=== PATIENT | male | born 1960 | race American Indian/Alaskan Native ===

== ENCOUNTER 2016-08-22 06:05 | Day surgery (SDC) | payer MEDICARE, MEDICAID ==
[2016-08-22] MEDS ORDERED: ECOTRIN PO ONE (06:24)
[2016-08-22 06:55] LABS: Basophils % (Auto) 1.4 % (0.0-1.8); Hematocrit 36.9 % (35.5-45.6); Hemoglobin 11.7 gm/dl (11.8-15.2); Mean Corpuscular HGB Conc 32 % (32-34); Mean Corpuscular Hemoglobin 28 pg (28-32); Mean Corpuscular Volume 88 fl (84-94); Platelet Count 177 K/mm3 (140-440); Red Blood Count 4.19 M/mm3 (3.65-5.03); White Blood Count 4.9 K/mm3 (4.5-11.0)
[2016-08-22 07:00] LABS: Red Cell Distribution Width 21.3 % (13.2-15.2)
[2016-08-22] MEDS ORDERED: NACL 0.9% 500 ML 500 ML IV SCH (07:00)
[2016-08-22 07:04] LABS: INR 1.09 (0.87-1.13)
[2016-08-22 07:06] LABS: BUN/Creatinine Ratio 4.17; Calcium 9.1 mg/dL (8.4-10.2); Chloride 103.3 mmol/L (98-107); Potassium 4.8 mmol/L (3.6-5.0)
[2016-08-22] MEDS ORDERED: HEPARIN 10,000 UNITS/10 ML ONE (09:19)
[2016-08-22] MEDS ORDERED: HEPARIN/NS 5000 UNIT/500ML(CATH LAB) 1,000 ML IR ONE (09:19)
[2016-08-22] MEDS: SUBLIMAZE ONE ×2 (09:42→10:50)
[2016-08-22] MEDS: XYLOCAINE 2% INFILTRATI ONE ×2 (09:42→10:54)
[2016-08-22] MEDS: VERSED ONE ×2 (09:42→10:50)
[2016-08-22] MEDS ORDERED: NACL 0.9% 250ML 0 ML ONE (09:44)
[2016-08-22] MEDS ORDERED: NITROGLYCERIN SYRINGE 0 ML ONE (10:34)
[2016-08-22] MEDS ORDERED: ULTRAM PO PRN (11:26)
--- NOTE | 2016-08-22 11:26 | Discharge Summary ---
Short Stay Discharge Plan Activity: advance as tolerated Weight Bearing Status: Partial Weight Bearing Diet: low fat, low cholesterol, low salt Wound: keep clean and dry Special Instructions: no heavy lifting (3 days), other (resume routine dialysis tomorrow morning) Additional Instructions: Resume routine dialysis tomorrow morning. Follow up with: BABATUNDE ZAVALA [Other] - 7 Days JAZIEL RODRIGES MD [Staff Physician] - 7 Days
[2016-08-22] MEDS ORDERED: CATAPRES PO PRN (11:27)
--- NOTE | 2016-08-22 11:42 | Cardiac Catherization Report ---
CARDIAC CATHETERIZATION REASON FOR PROCEDURE: The patient is a 56-year-old man with end-stage renal disease, on hemodialysis. He also has chronic, difficult to control hypertension. He was diagnosed with \\"CHF\\" at [facility] in 2010. Recently, he underwent thallium stress test, which was abnormal. As a result of abnormal stress test and congestive heart failure, he was referred for cardiac catheterization. DESCRIPTION OF PROCEDURE: The patient was prepped and draped in a sterile fashion after informed consent. Right femoral artery was entered using the Seldinger technique followed by placement of a 6-Macedonian sheath. Selective left and right coronary angiography was performed using #4 right and left Kathy catheters. A pigtail catheter was used for left ventricular angiography. The catheters were removed, sheath removed, and hemostasis achieved using an Angio-Seal device. The patient was returned to the postprocedure unit in stable condition. There were no complications. FINDINGS: HEMODYNAMICS: Left ventricular end-diastolic pressure was 14. Ascending aortic pressure was 156/80. There was no significant pressure gradient on pullback across the aortic valve. CORONARY ANGIOGRAPHY: The left main coronary artery was free of significant disease. Left anterior descending artery contained mild luminal irregularities in its mid segment. The circumflex artery was a relatively small caliber system with mild luminal irregularities in its proximal and mid segments. There was a 60-70% stenosis of the distal circumflex, leading to a very small caliber, 2 mm terminal obtuse marginal. The right coronary artery was large, dominant, free of significant disease except for mild luminal irregularities in the terminal segments. Left ventricular systolic function was at lower limits of normal, ejection fraction 50-55%. CONCLUSION: 1. 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 2. Otherwise, angiographically normal coronary arteries. 3. Left ventricular systolic function at the lower limits of normal, ejection fraction 50-55%. RECOMMENDATION: Risk factor modification and medical therapy. JOB# [id number] BRITTA/AYAKA
[2016-08-22 15:15] VITALS: BP 124/76
== END 2016-08-22 16:02 | disposition home or self-care (01) ==
LOC: OPU 06:05
PROVIDERS: ATTEND Internal Medicine Cardiovascular Disease
DX: I25.10 Atherosclerotic heart disease of native coronary artery without angina pectoris (principal); I13.2 Hypertensive heart and chronic kidney disease with heart failure and with stage 5 chronic kidney disease, or end stage renal disease; N18.6 End stage renal disease; I50.9 Heart failure, unspecified; Z99.2 Dependence on renal dialysis
CPT/HCPCS: 36415; 80048; 85025; 85610; 85730; 93005; 93010; 93458; C1760; C1894; J1644; J2250; J3010; J7040; J7050; Q9967